=== PATIENT | male | born 2000 | race American Indian/Alaskan Native ===

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

== ENCOUNTER 2019-05-24 13:39 | Emergency (ER) | payer BC ==
[2019-05-24 13:44] VITALS: BP 124/78
--- NOTE | 2019-05-24 13:47 | Event Note ---
ED Screening Note Date of service: 05/24/19 Time: 13:43 ED Screening Note: This is a 18 y.o. M. that presents to the ER with left 5th finger pain and swelling. Patient states a box fell on his hand while he was trying to catch it yesterday while at work. When he woke up this morning left 5th finger was swollen and pain with movement. He applied ice which improved some of the swelling. This initial assessment/diagnostic orders/clinical plan/treatment(s) is/are subject to change based on patients health status, clinical progression and re- assessment by fellow clinical providers in the ED. Further treatment and workup at subsequent clinical providers discretion. Patient/guardian urged not to elope from the ED as their condition may be serious if not clinically assessed and managed. Initial orders include: XR of left fingers
--- NOTE | 2019-05-24 14:10 | XRay Report ---
EXAMINATION: Left fingers, 2 views, 05/24/2019 CLINICAL INFORMATION: Swelling and pain of the fifth digit. COMPARISON: None. FINDINGS: There is no evidence of acute bony abnormality of the fifth digit. There may be mild genera lized soft tissue swelling. Signer Name: Amaris Glover MD Signed: 05/24/2019 2:05 PM Workstation Name: [id number]
--- NOTE | 2019-05-24 15:28 | Emergency Department Report ---
ED Upper Extremity Inj HPI - General Chief Complaint: Extremity Injury, Upper Stated Complaint: SWOLLEN FINGER Time Seen by Provider: 05/24/19 13:42 Source: patient Mode of arrival: Ambulatory Limitations: No Limitations - History of Present Illness Initial Comments: 18-year-old male presents to ED with left finger injury. Patient states he was at work yesterday, had to get a box from a shelf, and hurt his left pinky finger while pulling a box down. Patient reports swelling. Patient is able to flex and extend the finger. MD Complaint: Injury to:: left, finger -: days(s) (1) Other Extremity Injury: Fingers: Left Other Injuries: none Place: work Improves With: immobilization Worsens With: movement of extremity Context: direct blow Associated Symptoms: denies other symptoms - Related Data Previous Rx's Medication Instructions Recorded Last Taken Type Hydrocortisone 1% [Hydrocortisone 1 applicatio TP TID PRN #1 tube 08/10/17 Unknown Rx 1% CREAM] Permethrin 5% [Acticin 5% CREAM] 1 applicatio TP ONCE #1 tube 08/10/17 Unknown Rx Silver Sulfadiazine [Silvadene] 400 gm TP Q8HR 10 Days #1 cream..g. 08/17/17 Unknown Rx Allergies Allergy/AdvReac Type Severity Reaction Status Date / Time No Known Allergies Allergy Unverified 08/17/17 16:10 ED Review of Systems ROS: Stated complaint: SWOLLEN FINGER Other details as noted in HPI Comment: All other systems reviewed and negative Musculoskeletal: as per HPI Neurological: denies: numbness, paresthesias ED Past Medical Hx - Past Medical History Previous Medical History?: No - Surgical History Past Surgical History?: No - Social History Smoking Status: Never Smoker Substance Use Type: None - Medications Home Medications: Home Medications Medication Instructions Recorded Confirmed Last Taken Type Hydrocortisone 1% [Hydrocortisone 1 applicatio TP TID PRN #1 tube 08/10/17 Unknown Rx 1% CREAM] Permethrin 5% [Acticin 5% CREAM] 1 applicatio TP ONCE #1 tube 08/10/17 Unknown Rx Silver Sulfadiazine [Silvadene] 400 gm TP Q8HR 10 Days #1 cream..g. 08/17/17 Unknown Rx ED Physical Exam - General Limitations: No Limitations General appearance: alert, in no apparent distress - Head Head exam: Present: atraumatic, normocephalic - Eye Eye exam: Present: normal appearance - ENT ENT exam: Present: mucous membranes moist - Neck Neck exam: Present: normal inspection - Respiratory Respiratory exam: Present: normal lung sounds bilaterally. Absent: respiratory distress - Cardiovascular Cardiovascular Exam: Present: regular rate, normal rhythm - GI/Abdominal GI/Abdominal exam: Absent: distended - Extremities Exam Extremities exam: Present: other (left fifth finger appears normal, no deformity, no swelling, patient is able to flex and extend the finger, no significant tenderness on palpation) - Neurological Exam Neurological exam: Present: alert, oriented X3. Absent: motor sensory deficit - Psychiatric Psychiatric exam: Present: normal affect, normal mood - Skin Skin exam: Present: warm, dry, intact, normal color ED Course Vital Signs 05/24/19 13:42 Temperature 98 F Pulse Rate 67 Respiratory 16 Rate Blood Pressure 124/78 [Left] O2 Sat by Pulse 99 Oximetry ED Medical Decision Making - Radiology Data Radiology results: report reviewed, image reviewed - Differential Diagnosis fracture, sprain Critical care attestation.: If time is entered above; I have spent that time in minutes in the direct care of this critically ill patient, excluding procedure time. ED Disposition Clinical Impression: Sprain of finger, left Disposition: DC-01 TO HOME OR SELFCARE Is pt being admited?: No Condition: Stable Instructions: Finger Sprain (ED) Referrals: VIANCA WREN MD [Primary Care Provider] - 3-5 Days [facility] [Provider Group] - 3-5 Days BENITO COOMBS MD [Staff Physician] - 3-5 Days Forms: Work/School Release Form(ED) Time of Disposition: 15:27
== END 2019-05-24 15:43 | disposition home or self-care (01) ==
LOC: ED 13:39
DX: S63.617A Unspecified sprain of left little finger, initial encounter (principal); Z79.899 Other long term (current) drug therapy; W04.XXXA Fall while being carried or supported by other persons, initial encounter; Y93.89 Activity, other specified; Y92.69 Other specified industrial and construction area as the place of occurrence of the external cause; Y99.8 Other external cause status